=== PATIENT | female | born 1950 | race Caucasian/White ===

== ENCOUNTER 2017-03-12 16:36 | Emergency (ER) | payer MEDICARE, BC ==
--- NOTE | ~2017-03-12 | CR72 ---
[facility] A Service of [facility] & [facility] RADIOLOGY TEXT RESULTS PATIENT: DALLIN POLK LOCATION: [facility] : 52 UNIT #: [id number] AGE: [address]: Emeterio Darling MD SEX: F ORDER DR: [id number] [facility] [address] [place], [place] [address] [id number] E MR#: [id number] Acc #: [id number] NAME: DALLIN POLK : 1950 SEX: F STUDY DATE/TIME: 03/12/2017 16:24 UNIT: [facility] ROOM: STUDY DESCRIPTION: CR Chest Single View Portable Attending Physician: Emeterio Darling M.D. Ordering Physician: Emeterio Darling M.D. Primary Care Physician: Christiano Mcpherson M.D. MEDICAL IMAGING REPORT This report is preliminary unless electronic signature is present EXAM Portable chest x-ray 03/12/2017 HISTORY Short of air. Elevated blood pressure began 1 week ago. Worse today. History of asthma. TECHNIQUE AP radiograph of the chest presented. COMPARISON No comparison chest radiographs. FINDINGS Status post bilateral shoulder arthroplasty. No acute-appearing bony abnormality. Mild cardiac enlargement. Lungs moderately well inflated without evidence of acute pulmonary disease, pleural effusion or pneumothorax. No suspicious nodule. Dictated by... Maico Spaulding M.D. THIS IS AN ELECTRONICALLY VERIFIED REPORT Maico Spaulding M.D. at 03/18/2017 5:58 PM CLARICEK/tory TD: 03/12/2017 19:16 JOB #: [id number] MEDICAL IMAGING REPORT Page 1 of 1 COPY
--- NOTE | ~2017-03-12 | US85 ---
[facility] A Service of [facility] & [facility] RADIOLOGY TEXT RESULTS PATIENT: DALLIN POLK LOCATION: [facility] : 52 UNIT #: [id number] AGE: [address]: Emeterio Darling MD SEX: F ORDER DR: [id number] [facility] [address] [place], [place] [address] [id number] E MR#: [id number] Acc #: [id number] NAME: DALLIN POLK : 1950 SEX: F STUDY DATE/TIME: 03/12/2017 17:32 UNIT: [facility] ROOM: STUDY DESCRIPTION: LE Veins Unilat or Ltd Stdy Attending Physician: Emeterio Darling M.D. Ordering Physician: Emeterio Darling M.D. Primary Care Physician: Christiano Mcpherson M.D. MEDICAL IMAGING REPORT This report is preliminary unless electronic signature is present EXAM Left lower extremity venous ultrasound 03/12/2017 HISTORY Left lower extremity swelling for 1 month. Hypertension. TECHNIQUE Venous ultrasound examination of the left lower extremity was performed using grayscale, spectral Doppler and color flow Doppler imaging. FINDINGS The examination is negative. There is no evidence of left lower extremity deep venous thrombus from the groin to the lower calf. Visualized greater saphenous vein is also patent. IMPRESSION Negative examination. No evidence of left lower extremity deep venous thrombosis. Dictated by... Maico Spaulding M.D. THIS IS AN ELECTRONICALLY VERIFIED REPORT Maico Spaulding M.D. at 03/18/2017 5:57 PM ROSANGELA/tory TD: 03/12/2017 19:48 JOB #: [id number] MEDICAL IMAGING REPORT Page 1 of 1 COPY
[2017-03-12 16:37] LABS: BASOPHIL# 0.1 X10e3 (0-0.3); BASOPHIL% 1.4 % (0-2.5); EOSINOPHIL# 0.4 X10e3 (0-0.7); EOSINOPHIL% 4.8 % (0.0-7.0); HEMATOCRIT 33.5 % (35.0-45.0); LYMPHOCYTE# 1.6 X10e3 (1.0-3.5); LYMPHOCYTE% 18.8 % (17.0-45.0); MEAN CELL VOLUME 82.2 FL (83-96); MEAN CORPUSCULAR HEMOGLOBIN 26.9 PG (28-34); MEAN CORPUSCULAR HGB CONC 32.7 g/dL (30-36); MEAN PLATELET VOLUME 8.6 FL (6.5-11.5); MONOCYTE# 0.9 X10e3 (0-1.0); NEUTROPHIL# 5.5 X10e3 (1.5-7.1); PLATELET COUNT 267 X10e3 (140-420); RED BLOOD COUNT 4.07 X10e (3.90-5.30); RED CELL DISTRIBUTION WIDTH 17.1 % (11.0-15.5); WHITE BLOOD COUNT 8.6 X10e3 (4.0-10.5)
[2017-03-12 16:44] LABS: DIFF IND NO
[2017-03-12 17:02] LABS: ALBUMIN SERUM 3.7 g/dL (3.5-5.0); BILIRUBIN,TOTAL 0.5 mg/dL (0.2-2.0); CALCIUM SERUM 8.7 mg/dL (8.4-10.2); GLOM FILT RATE Estimated 59.1 mL/min (>60); POTASSIUM 3.2 mmol/L (3.5-5.1); PROTEIN TOTAL SERUM 6.4 g/dL (6.0-8.3)
== END 2017-03-12 18:03 | disposition home or self-care (01) ==
LOC: CED 16:36
PROVIDERS: Emergency Medicine
DX: R60.0 Localized edema (principal); R06.00 Dyspnea, unspecified; I10 Essential (primary) hypertension; J44.9 Chronic obstructive pulmonary disease, unspecified; N28.9 Disorder of kidney and ureter, unspecified; Z88.0 Allergy status to penicillin; Z88.2 Allergy status to sulfonamides; Z88.8 Allergy status to other drugs, medicaments and biological substances; Z91.09 Other allergy status, other than to drugs and biological substances
CPT/HCPCS: 36415; 71010; 80053; 83880; 85025; 93971; 99284

== ENCOUNTER 2017-05-05 18:52 | Emergency (ER) | payer MEDICARE, BC ==
--- NOTE | ~2017-05-05 | CR172 ---
[facility] A Service of [facility] & [facility] RADIOLOGY TEXT RESULTS PATIENT: DALLIN POLK LOCATION: [facility] : 52 UNIT #: [id number] AGE: [address]: Mukund Ortiz MD SEX: F ORDER DR: [id number] [facility] [address] [place], [place] [address] [id number] E MR#: [id number] Acc #: [id number] NAME: DALLIN POLK : 1950 SEX: F STUDY DATE/TIME: 05/05/2017 20:26 UNIT: [facility] ROOM: STUDY DESCRIPTION: CR Knee 3 Views Lt Attending Physician: Mukund Ortiz M.D. Ordering Physician: Mili Ryan A.P.R.N. Primary Care Physician: Christiano Mcpherson M.D. MEDICAL IMAGING REPORT This report is preliminary unless electronic signature is present EXAM Left knee, 3 views. HISTORY Left knee bruising and pain after a fall yesterday. FINDINGS Three views of the left knee demonstrates postoperative changes of left total knee arthroplasty. No evidence of periprosthetic fracture or loosening. Mild soft tissue swelling about the knee. No joint effusion. IMPRESSION Mild soft tissue swelling about the knee. No evidence of periprosthetic fracture or loosening in this patient with a left total knee arthroplasty. Dictated by... Georgia Vazquez M.D. THIS IS AN ELECTRONICALLY VERIFIED REPORT Georgia Vazquez M.D. at 05/06/2017 3:10 PM SHEREEN/marija TD: 05/06/2017 10:34 JOB #: [id number] MEDICAL IMAGING REPORT Page 1 of 1 COPY
--- NOTE | ~2017-05-05 | CR72 ---
[facility] A Service of [facility] & [facility] RADIOLOGY TEXT RESULTS PATIENT: DALLIN POLK LOCATION: [facility] : 52 UNIT #: [id number] AGE: [address]: Mukund Ortiz MD SEX: F ORDER DR: [id number] [facility] [address] [place], [place] [address] [id number] E MR#: [id number] Acc #: [id number] NAME: DALLIN POLK : 1950 SEX: F STUDY DATE/TIME: 05/05/2017 20:31 UNIT: [facility] ROOM: STUDY DESCRIPTION: CR Chest Single View Portable Attending Physician: Mukund Ortiz M.D. Ordering Physician: Mili Ryan A.P.R.N. Primary Care Physician: Christiano Mcpherson M.D. MEDICAL IMAGING REPORT This report is preliminary unless electronic signature is present EXAM Portable chest HISTORY Fell yesterday, shortness of air, palpitations. COMPARISON 03/12/2017 FINDINGS Portable view of the chest demonstrates no infiltrates or effusions. Heart, mediastinum, great vessels unremarkable. Bilateral total shoulder arthroplasties. Overall no acute findings. Dictated by... Georgia Vazquez M.D. THIS IS AN ELECTRONICALLY VERIFIED REPORT Georgia Vazquez M.D. at 05/06/2017 3:10 PM Ad TD: 05/06/2017 10:35 JOB #: [id number] MEDICAL IMAGING REPORT Page 1 of 1 COPY
--- NOTE | ~2017-05-05 | EKG ---
PATIENT: DALLIN POLK UNIT #: [id number] Ventricular Rate: 150 BPM Atrial Rate: 50 BPM QRS Duration: 80 ms Q-T Interval: 300 ms QTC Calculation(Bezet): 474 ms Calculated R [place]: -22 degrees Calculated T [place]: 37 degrees Diagnosis Line: Supraventricular tachycardia Diagnosis Line: Low voltage QRS Diagnosis Line: Nonspecific ST abnormality Diagnosis Line: Abnormal ECG Diagnosis Line: No previous ECGs available Diagnosis Line: Confirmed by VANDANA ESPARZA MD ([id number]) on Diagnosis Line: 05/05/2017 10:25:21 PM INTERPRETING MD: NERISSA
--- NOTE | ~2017-05-05 | CR150 ---
[facility] A Service of [facility] & [facility] RADIOLOGY TEXT RESULTS PATIENT: DALLIN POLK LOCATION: [facility] : 52 UNIT #: [id number] AGE: [address]: Mukund Ortiz MD SEX: F ORDER DR: [id number] [facility] [address] [place], [place] [address] [id number] E MR#: [id number] Acc #: [id number] NAME: DALLIN POLK : 1950 SEX: F STUDY DATE/TIME: 05/05/2017 20:35 UNIT: [facility] ROOM: STUDY DESCRIPTION: CR Hip Min 2 Views Lt Attending Physician: Mukund Ortiz M.D. Ordering Physician: Mili Ryan A.P.R.N. Primary Care Physician: Christiano Mcpherson M.D. MEDICAL IMAGING REPORT This report is preliminary unless electronic signature is present EXAM Left hip, 2 views. HISTORY Fell yesterday. Left hip pain. FINDINGS AP pelvis and frog lateral view of the left hip demonstrates no fracture, dislocation, arthritic or inflammatory change. Soft tissues are unremarkable. IMPRESSION Negative left hip and pelvis. Dictated by... Georgia Vazquez M.D. THIS IS AN ELECTRONICALLY VERIFIED REPORT Georgia Vazquez M.D. at 05/06/2017 3:10 PM SHEREEN/jesse TD: 05/06/2017 10:37 JOB #: [id number] MEDICAL IMAGING REPORT Page 1 of 1 COPY
[2017-05-05 21:29] LABS: BASOPHIL# 0.1 X10e3 (0-0.3); BASOPHIL% 1.2 % (0-2.5); DIFF IND NO; EOSINOPHIL# 0.4 X10e3 (0-0.7); EOSINOPHIL% 4.9 % (0.0-7.0); HEMATOCRIT 37.7 % (35.0-45.0); LYMPHOCYTE# 1.6 X10e3 (1.0-3.5); LYMPHOCYTE% 18.9 % (17.0-45.0); MEAN CELL VOLUME 84.9 FL (83-96); MEAN CORPUSCULAR HEMOGLOBIN 27.1 PG (28-34); MEAN CORPUSCULAR HGB CONC 31.9 g/dL (30-36); MEAN PLATELET VOLUME 9.3 FL (6.5-11.5); MONOCYTE% 12.4 % (3.0-12.0); NEUTROPHIL# 5.1 X10e3 (1.5-7.1); NEUTROPHIL% 62.6 % (40-75); PLATELET COUNT 232 X10e3 (140-420); RED BLOOD COUNT 4.44 X10e (3.90-5.30); RED CELL DISTRIBUTION WIDTH 18.1 % (11.0-15.5); WHITE BLOOD COUNT 8.2 X10e3 (4.0-10.5)
[2017-05-05 21:30] LABS: POC - CKMB 1.7 ng/mL (0.0-7.9); POC - TROPONIN <0.05 ng/mL (<=0.05)
[2017-05-05 21:55] LABS: ALBUMIN SERUM 3.9 g/dL (3.5-5.0); BILIRUBIN, DIRECT 0.1 mg/dL (0.0-0.2); BILIRUBIN,TOTAL 0.1 mg/dL (0.2-2.0); BUN/CREATININE RATIO 15.83; CALCIUM SERUM 9.2 mg/dL (8.4-10.2); CREATININE SERUM 1.2 mg/dL (0.6-1.4); GLOM FILT RATE Estimated 47.4 mL/min (>60); POTASSIUM 4.1 mmol/L (3.5-5.1); PROTEIN TOTAL SERUM 6.8 g/dL (6.0-8.3)
== END 2017-05-05 22:45 | disposition home or self-care (01) ==
LOC: CFTX 18:52 → CED 18:52 → CFTX 20:41 → CED 20:41
PROVIDERS: Emergency Medicine; Nurse Practitioner
DX: S80.02XA Contusion of left knee, initial encounter (principal); S70.02XA Contusion of left hip, initial encounter; I47.1 Supraventricular tachycardia; K21.9 Gastro-esophageal reflux disease without esophagitis; I10 Essential (primary) hypertension; F41.9 Anxiety disorder, unspecified; F32.9 Major depressive disorder, single episode, unspecified; J45.909 Unspecified asthma, uncomplicated; E03.9 Hypothyroidism, unspecified; Z88.0 Allergy status to penicillin; Z88.2 Allergy status to sulfonamides; W01.0XXA Fall on same level from slipping, tripping and stumbling without subsequent striking against object, initial encounter; Y92.89 Other specified places as the place of occurrence of the external cause
CPT/HCPCS: 36415; 71010; 73502; 73562; 80048; 80076; 82553; 84484; 85025; 93005; 99283; J0153